=== PATIENT | female | born 1985 | race Caucasian/White ===

== ENCOUNTER 2017-07-07 11:47 | Emergency (ER) | payer OTHER ==
[~2017-07-07] VITALS: Ht 172.7 cm; Wt 68.0 kg
[~2017-07-07 11:47] MED LIST: ACET500C5 PO; ALPR0.5T PO
[2017-07-07 11:50] VITALS: Ht 172.7 cm; Wt 68.0 kg
[2017-07-07] MEDS ORDERED: KETOROLAC 60 MG INJ IM STA (13:07)
[2017-07-07] MEDS ORDERED: DIAZEPAM 2 MG TAB PO ONE (13:30)
[2017-07-07] MEDS ORDERED: DIAZEPAM 5 MG TAB PO ONE (14:30)
--- NOTE | 2017-07-07 14:48 | RADRPT ---
PROCEDURE: CT Lumbar Spine without intravenous contrast CLINICAL INDICATION: Low back pain radiating to the tail bone. COMPARISON: None available. TECHNIQUE: Axial noncontrast CT images of the lumbar spine with coronal and sagittal reformats. DOSE ESTIMATE: CTDI vol = 9 mGy. DLP = 328 mGy-cm. One or more of the following dose reduction ceferino hniques were used: automated exposure control, adjustment of the mA and/or kV according to patient s ize, or use of iterative reconstruction. FINDINGS: Segmentation: For this report the last well-formed disc is labeled L5-S1. Alignment: Normal. Vertebrae: No fracture, vertebral body height loss, or destructive bone lesion. Discs: Mild L5-S1 disc height loss. Degenerative change: T12-L1: No disc herniation. No spinal canal or foraminal narrowing. L1-L2: No disc herniation. No spinal canal or foraminal narrowing. L2-L3: No disc herniation. No spinal canal or foraminal narrowing. L3-L4: 1 mm disc bulge. No central canal or foraminal narrowing. L4-L5: 3 mm disc bulge without significant central canal or foraminal narrowing. L5-S1: 6 mm disc bulge with ligamentum flavum laxity. No significant central canal narrowing. No for aminal narrowing. Para-vertebral soft tissues: Normal. Visualized abdomen and pelvis: Normal. Additional comment: Intrauterine device. Nipple adornment. Free fluid within the pelvis, an expected finding in a premenopausal woman. IMPRESSION: 1. No fracture, subluxation, or significant central canal narrowing, or foraminal narrowing. 2. Mild degenerative disc changes between L3-L4 and L5-S1. RPTAT: HH Physician Josue Date Time Electronically viewed and signed by Physician Jsoue on 07/07/2017 14:48 LG/
[2017-07-07] MEDS ORDERED: ORPH100T PO (14:51)
[2017-07-07] MEDS ORDERED: HYDR-906 PO (14:52)
[2017-07-07] MEDS ORDERED: IBUP-1542 PO (14:52)
[2017-07-07 15:30] VITALS: BP 128/76; PULSE 76; RESP 20; TEMP 98.4
--- NOTE | 2017-07-07 15:35 | ERD ---
ER Documentation Chief Complaint Chief Complaint Complains of severe back pain x 4 days HPI This is a 32-year-old female presents to the ER with severe lower back pain that started on Monday after she was moving a 150 object at work. States that while she was doing that she felt a pop and almost passed out secondary to severe back pain. Patient has been taking nitl-[id number] medications, and trying home remedies however they have not worked. Patient states that pain is mostly located in her lower back, near the beginning of her tailbone, and radiates into both hipS down both of her thighs. Patient states that leg pain is more like muscular cramping or spasming. Denies any numbness or tingling of her lower extremities. She denies any urinary bowel incontinence. ROS 12 point review of systems was done, all negative except per HPI. Medications Home Meds Active Scripts Ibuprofen* (Motrin*) 600 Mg Tab, 600 MG PO Q6, #30 TAB Prov:GOGO CAMPBELL C 07/07/17 Hydrocodone/Acetaminophen ([place] 5-325 Tablet) 1 Each Tablet, 1 TAB PO Q6H Y for PAIN, #20 TAB Prov:SHANNANKAYLAGOGO C 07/07/17 Orphenadrine Citrate (Norflex) 100 Mg Tablet.sa, 100 MG PO BID for 7 Days, TAB.SA Prov:KAYLA CAMPBELLNA C 07/07/17 Acetaminophen* (Tylophen*) 500 Mg Capsule, 1 CAP PO Q6H Y for PAIN AND OR ELEVATED TEMP, #20 CAP Prov:RUDDY MEJIA NP 07/13/16 Alprazolam* (Xanax*) 0.5 Mg Tab, 0.5 MG PO TID, #20 TAB Prov:ANA PAULA RIVERA DO 05/01/16 Allergies Allergies: Coded Allergies: No Known Allergy (Unverified , 07/07/17) PMhx/Soc History of Surgery: Yes (BREAST AUGMENTATION, left breast cyst removal) Anesthesia Reaction: No Hx Neurological Disorder: No Hx Respiratory Disorders: No Hx Cardiac Disorders: No Hx Psychiatric Problems: Yes (ANXIETY) Hx Miscellaneous Medical Probl: No Hx Alcohol Use: Yes (SOCIAL) Hx Substance Use: No Hx Tobacco Use: No Physical Exam Vitals Vital Signs Date Time Temp Pulse Resp B/P Pulse Ox O2 Delivery O2 Flow Rate FiO2 10/20/17 11:50 98.2 87 20 135/78 99 Physical Exam GENERAL: The patient is well developed and appropriate for usual state of health , in no apparent distress. NECK: C-spine is soft and supple. There is no cervical lymphadenopathy. CHEST: Clear to auscultation bilaterally. There are no rales, wheezes or rhonchi. HEART: Regular rate and rhythm. No murmurs, clicks, rubs or gallops. ABDOMEN: Soft, nontender and nondistended. Good bowel sounds. No rebound or guarding. No gross peritonitis. No gross organomegaly or masses. No Ontiveros sign or McBurney point tenderness. No pulsatile abdominal mass. BACK: No midline or flank tenderness. Tender to palpation from L3-L5. Tense paraspinal muscles. Negative leg raise test. No step- offs. no foot drop EXTREMITIES: Equal pulses bilaterally. There is no peripheral clubbing, cyanosis or edema. No focal swelling or erythema. Full range of motion. Grossly neurovascularly intact. NEURO: Alert and oriented. Cranial nerves II through XII are intact. Motor strength in all 4 extremities with 5/5 strength. Sensation grossly intact. Normal speech and gait. SKIN: There is no apparent rash or petechia. The skin is warm and dry. Results 24 hrs Current Medications Medications (Trade) Dose Ordered Sig/Reynaldo Route PRN Reason Start Time Stop Time Status Last Admin Dose Admin Ketorolac Tromethamine (Toradol) 60 mg ONCE STAT IM 07/07/17 13:07 07/07/17 13:09 DC 07/07/17 14:10 Diazepam (Valium) 2 mg ONCE ONCE PO 07/07/17 13:30 07/07/17 14:08 DC Diazepam (Valium) 5 mg ONCE ONCE PO 07/07/17 14:30 07/07/17 14:31 DC 07/07/17 14:[address] [address] Radiology Main Line: [phone] DIAGNOSTIC IMAGING REPORT Patient: KEANU MARIN : 1985 Age: 32 Sex: F MR #: [id number] DOS: 07/07/17 0000 Ordering MD: GOGO CAMPBELL PA-C Location: [facility] Room/Bed: PROCEDURE: CT Lumbar Spine without intravenous contrast CLINICAL INDICATION: Low back pain radiating to the tail bone. COMPARISON: None available. TECHNIQUE: Axial noncontrast CT images of the lumbar spine with coronal and sagittal reformats. DOSE ESTIMATE: CTDI vol = 9 mGy. DLP = 328 mGy-cm. One or more of the following dose reduction techniques were used: automated exposure control, adjustment of the mA and/or kV according to patient size, or use of iterative reconstruction. FINDINGS: Segmentation: For this report the last well-formed disc is labeled L5-S1. Alignment: Normal. Vertebrae: No fracture, vertebral body height loss, or destructive bone lesion. Discs: Mild L5-S1 disc height loss. Degenerative change: T12-L1: No disc herniation. No spinal canal or foraminal narrowing. L1-L2: No disc herniation. No spinal canal or foraminal narrowing. L2-L3: No disc herniation. No spinal canal or foraminal narrowing. L3-L4: 1 mm disc bulge. No central canal or foraminal narrowing. L4-L5: 3 mm disc bulge without significant central canal or foraminal narrowing. L5-S1: 6 mm disc bulge with ligamentum flavum laxity. No significant central canal narrowing. No foraminal narrowing. Para-vertebral soft tissues: Normal. Visualized abdomen and pelvis: Normal. Additional comment: Intrauterine device. Nipple adornment. Free fluid within the pelvis, an expected finding in a premenopausal woman. IMPRESSION: 1. No fracture, subluxation, or significant central canal narrowing, or foraminal narrowing. 2. Mild degenerative disc changes between L3-L4 and L5-S1. RPTAT: HH Physician Josue Date Time Electronically viewed and signed by Physician Josue on 07/07/2017 14: 48 LG/ CC: GOGO CAMPBELL Procedures/MDM Differential Diagnosis includes but is not limited to back strain, vertebral fracture, epidural abscess, cauda equina, herniated disc, AAA rupture, kidney stones, UTI, pyelonephritis. This is a 32-year-old female presents to the ER with lower back pain. Patient did have some disc bulging, which may be the cause of her pain. At this time suspicion for cauda equina is low. Epidural abscess or discitis, as patient is afebrile. Patient is neurovascularly intact. She was given Valium and Toradol in the ER and this helped her pain. Patient will be sent home with [place], ibuprofen and Norflex. She is to follow- up with orthopedic spine doctor as soon as possible return to ER sooner if symptoms worsen. My medical decision making shared with the patient and her they both understand and agree with plan. Departure Diagnosis: Primary Impression: Lower back pain Condition: Stable Patient Instructions: Relieving Back Pain Referrals: DIANNA RECINOS MD Additional Instructions: Call your primary care doctor TOMORROW for an appointment during the next 1-2 days.See the doctor sooner or return here if your condition worsens before your appointment time. GOGO CAMPBELL Jul 07, 2017 15:35
== END 2017-07-07 15:30 | disposition home or self-care (01) ==
LOC: FTE 11:47
DX: M54.5 Low back pain (principal)
CPT/HCPCS: 72131; 96372; 99285; J1885

== ENCOUNTER 2017-09-14 10:22 | Emergency (ER) | END 2017-09-14 14:17 | disposition home or self-care (01) ==